=== PATIENT | male | born 1995 | race Caucasian/White ===

== ENCOUNTER 2018-07-31 08:46 | Day surgery (SDC) | payer OTHER ==
[~2018-07-31 08:46] MED LIST: Lactated Ringers 1,000 ML IV SCH
[2018-07-31] MEDS ORDERED: fentaNYL 100 MCG/2 ML SDV IV ONE (10:00)
[2018-07-31] MEDS ORDERED: Ondansetron 4 MG/2 ML SDV IVPUSH ONE (10:00)
[2018-07-31] MEDS ORDERED: diphenhydrAMINE 50 MG/ML SDV IVPUSH ONE (10:00)
[2018-07-31] MEDS ORDERED: Rocuronium 100 MG/10 ML MDV IV ONE (10:00)
[2018-07-31] MEDS ORDERED: cefTRIAXone 1,000 MG VIAL IVPUSH ONE (10:00)
[2018-07-31] MEDS ORDERED: HYDROmorphone 2 MG/ML SDV IV ONE (10:00)
[2018-07-31] MEDS ORDERED: Succinylcholine 200 MG/10 ML MDV IV ONE (10:00)
[2018-07-31] MEDS ORDERED: Midazolam 1 MG/ML 2 ML SDV IV ONE (10:00)
[2018-07-31] MEDS ORDERED: Lactated Ringers 1,000 ML IV ONE (10:00)
[2018-07-31] MEDS ORDERED: Dexamethasone 4 MG/ML 5 ML MDV IVPUSH ONE (10:00)
[2018-07-31] MEDS ORDERED: Propofol 200 MG/20 ML SDV IV ONE (10:00)
--- NOTE | 2018-07-31 10:17 | PCM.PN ---
- General Info Date of Service: 07/31/18 - Review of Systems Systems Review Comment:: 23 y/o male with history of tonsil enlargement here for tonsillectomy. He is medically stable to proceed with no significant change from his recent H and P. The proposed surgery is again discussed with the patient. Questions answered and instructions reviewed. He agrees to proceed accepting risks. - Patient Data Vitals - Most Recent: Last Vital Signs Temp 98.5 F 07/31/18 09:10 Pulse 73 07/31/18 09:10 Resp 18 07/31/18 09:10 BP 128/73 07/31/18 09:10 Pulse Ox 98 07/31/18 09:10 Weight - Most Recent: 159 lb Med Orders - Current: Current Medications Lactated Ringer's (Ringers, Lactated) 1,000 mls @ 125 mls/hr IV ASDIRECTED MAAME Last Admin: 07/31/18 09:19 Dose: 125 mls/hr - Problem List Review Problem List Initiated/Reviewed/Updated: Yes - My Orders Last 24 Hours: My Active Orders 07/30/18 10:43 Resuscitation Status Routine 07/30/18 Dinner Nothing Per Oral Diet [DIET] 07/31/18 08:45 Patient Status [ADT] Routine Patient to Empty Bladder [RC] ASDIRECTED Verify Patient Consent Obtain [RC] ASDIRECTED Lactated Ringers [Ringers, Lactated] 1,000 ml IV ASDIRECTED Peripheral IV Insertion Adult [OM.PC] Routine - Assessment Assessment:: Chronic Tonsillitis - Plan Plan:: Tonsillectomy with possible adenoidectomy
--- NOTE | 2018-07-31 11:30 | PCM.OPNOTE ---
- General Post-Op/Procedure Note Date of Surgery/Procedure: 07/31/18 Operative Procedure(s): Tonsillectomy Findings: Large chronically inflamed tonsils bilaterally No significant adenoid enlargement Pre Op Diagnosis: Chronic Tonsillitis Post-Op Diagnosis: Same Anesthesia Technique: General ET Tube Primary Surgeon: Cedrick Frost Pathology: Tonsils Output, Urine Amount: 0 EBL in mLs: 25 Complications: None Condition: Good
--- NOTE | 2018-07-31 12:31 | OR ---
DATE OF OPERATION: 07/31/2018 SURGEON: Cedrick Frost MD PREOPERATIVE DIAGNOSIS: Chronic tonsillitis. POSTOPERATIVE DIAGNOSIS: Chronic tonsillitis. OPERATION PERFORMED: Tonsillectomy. INDICATIONS FOR SURGERY: This 23-year-old male has developed chronically enlarged and inflamed tonsils. They have persisted like this despite repeated courses of antibiotics and an extended period of observation. They are causing pain and additional symptoms, and he comes for tonsillectomy. FINDINGS: The patient's tonsils are both markedly enlarged, deeply imbedded, and scarred into the respective tonsillar beds. The adherence to the sidewall of the tonsillar bed is dense on both sides and inflammation is noted around both tonsils. There is no significant adenoid hypertrophy. PROCEDURE IN DETAIL: The patient was taken to the operating room. He was given general endotracheal anesthesia. He was positioned with his neck extended and a mouth gag was inserted. Palpation of the adenoid fossa revealed it to be empty. Attention was then turned to the right tonsil, which was dissected free from its respective tonsillar bed using cautery dissection. This dissection was somewhat difficult because of the inflammation and deeply imbedded nature of the tonsil, but eventually, the tonsil was able to be completely freed and removed. Attention was then turned to the left tonsil, which was also deeply imbedded, although, not quite as severely inflamed as the right side, and it too was dissected completely free from its tonsillar bed. Full hemostasis was assured with the use of electrocautery. After a period of observation with no tension on the tongue, the tonsillar beds appeared to be dry. The patient was awakened, extubated, and taken from the operating room in a satisfactory condition. ESTIMATED BLOOD LOSS: 25 mL. COMPLICATIONS: None. PROGNOSIS: Good. /[id number] RADHA/KODAK
[2018-07-31] MEDS ORDERED: Acetaminophen/HYDROcodone 108-2.5 MG/5 ML Soln 15 ML UD Cup PO ONE (12:56)
== END 2018-07-31 14:25 | disposition home or self-care (01) ==
LOC: FB.SDS 08:46
PROVIDERS: ATTEND Surgery
DX: J35.01 Chronic tonsillitis (principal)
CPT/HCPCS: 88304; A9270-GY; J0131; J0330; J0696; J1100; J1170; J1200; J2250; J2405; J2704; J3010; J7120